=== PATIENT | female | born 1960 | race Caucasian/White ===

== ENCOUNTER → 2024-08-02 | Outpatient (REF) | payer BC | LOC: US 09:48 | PROVIDERS: ATTEND Nurse Practitioner Family | DX: R10.9 Unspecified abdominal pain (principal) | CPT/HCPCS: 76700 ==

== ENCOUNTER → 2024-10-17 | Outpatient (REF) | payer BC ==
[~2024-10-17] MED LIST: HYDROCHLOROTHIA25 MG PO; LISINOPRIL20 MG PO; METFORMIN HCL500 MG PO; OMEPRAZOLE40 MG PO; SIMVASTATIN40 MG PO; TYLENOL PM EXS1 EACH; VITAMIN D31 ML
== END ==
LOC: NM 08:31
PROVIDERS: ATTEND Internal Medicine Gastroenterology
DX: K80.20 Calculus of gallbladder without cholecystitis without obstruction (principal)
CPT/HCPCS: 78227; A9537